=== PATIENT | female | born 1965 | race Caucasian/White ===

== ENCOUNTER 2016-04-20 08:44 | Emergency (ER) | payer BC, OTHER ==
[2016-04-20 09:00] VITALS: BP 128/68
--- NOTE | 2016-04-20 09:46 | UC ---
UC General HPI - HPI Summary HPI Summary: The patient comes in today for: 1. Sinus congestion, "minor aches," "headaches," "ankle pain in the morning," "right groin pain, but now gone,": Onset: 6 days ago (sinus congestion). Palliative/provocative: Sudafed and Tylenol--these seemed to help. Quality: Ache. Region: No ankle pain at this time or groin pain. Severity: 0/10 for the ankle or groin. Time: Comes and goes. Associated symptoms: Fever: None. Rhinitis: Clear Cough: None. * - History of Current Complaint Chief Complaint: UCRespiratory Stated Complaint: SINUS,ACHY,EAR PAIN Time Seen by Provider: 04/20/16 09:01 Hx Obtained From: Patient - Allergy/Home Medications Allergies/Adverse Reactions: Allergies Allergy/AdvReac Type Severity Reaction Status Date / Time ambesol AdvReac Mild See Comment Uncoded 04/20/16 08:50 Home Medications: Home Medications Ibuprofen TAB* [Motrin TAB*] 600 mg PO QID PRN 04/20/16 [History Confirmed 04/20] Pseudoephedrine TAB* [Sudafed TAB*] 30 mg PO Q4H PRN 04/20/16 [History Confirmed 04/20/16] PMH/Surg Hx/FS Hx/Imm Hx Previously Healthy: Yes Endocrine History Of: Denies: Diabetes, Thyroid Disease, Hyperthyroidism, Hypothyroidism, Dyslipidemia Cardiovascular History Of: Denies: Cardiac Disorders, Hypertension, Pacemaker/ICD, Myocardial Infarction , Congestive Heart Failure, Atrial Fibrillation, Deep Vein Thrombosis, Bleeding Disorders Respiratory History Of: Denies: COPD, Asthma, Bronchitis, Pneumonia, Pulmonary Embolism GI/ History Of: Denies: Gastroesophageal Reflux, Ulcer, Gastrointestinal Bleed, Gall Bladder Disease, Kidney Stones, Diverticulitis, Renal Disease, Urosepsis Neurological History Of: Denies: TIA, CVA, Dementia, Seizures, Migraine Psychological History Of: Denies: Anxiety, Depression, Bipolar Disorder, Schizophrenia, Post Traumatic Stress Disorder Cancer History Of: Denies: Lung Cancer, Colorectal Cancer, Breast Cancer, Prostate Cancer, Cervical Cancer Other History Of: Negative For: HIV, Hepatitis B, Hepatitis C, Anticoagulant Therapy - Surgical History Surgical History: Yes Surgery Procedure, Year, and Place: tonsilectomy. D&C - Family History Known Family History: Positive: Cardiac Disease, Other - DJD Negative: Hypertension, Diabetes Family History: hx DM and CAD - Social History Occupation: Employed Full-time Alcohol Use: Weekly Substance Use Type: None Smoking Status (MU): Never Smoked Tobacco Have You Smoked in the Last Year: No - Immunization History Most Recent Influenza Vaccination: not this season Review of Systems Constitutional: Negative Skin: Negative Eyes: Negative ENT: Negative Respiratory: Negative Cardiovascular: Negative Gastrointestinal: Negative Genitourinary: Negative All Other Systems Reviewed And Are Negative: Yes Physical Exam Triage Information Reviewed: Yes Appearance: Well-Appearing, No Pain Distress, Well-Nourished Vital Signs: Initial Vital Signs Temp 98.9 F 04/20/16 08:52 Pulse 72 04/20/16 08:52 Resp 18 04/20/16 08:52 BP 128/68 04/20/16 08:52 Pulse Ox 100 04/20/16 08:52 Vital Signs Reviewed: Yes Eyes: Positive: Conjunctiva Clear. Negative: Discharge ENT: Positive: Hearing grossly normal, Other: - There was tenderness to palpation of his frontal and maxillary sinuses.. Negative: Pharyngeal erythema , Nasal congestion, Nasal drainage, TM bulging, TM dull, TM red, Tonsillar swelling, Tonsillar exudate Dental: Negative: Gross Decay/Caries @, Dental Fracture @ Neck: Positive: Supple, Nontender, No Lymphadenopathy. Negative: Nuchal Rigidity Respiratory: Positive: Chest non-tender, Lungs clear, No respiratory distress, No accessory muscle use. Negative: Crackles, Wheezing Cardiovascular: Positive: RRR, No Murmur Abdomen Description: Positive: Nontender, No Organomegaly, Soft. Negative: Distended, Guarding Musculoskeletal: Positive: Strength Intact, ROM Intact, Other: - There was no tenderness to palpation of the right inguinal area, no femoral hernia. No tenderness to palpation of the ankles, no reduction of range of motion. Neurological: Positive: Alert, Muscle Tone Normal Psychological: Negative: Age Appropriate Behavior, Consolable Skin: Negative: rashes, breakdown Course/Dx - Course Course Of Treatment: The patient was told that I thought she had a viral syndrome at this time, but she wanted an antibiotic in the event she develops a prolonged course with purulent rhinitis or cough. She also wanted prescription Naproxen to take at night to help with her morning ankle pain. She had multiple other concerns such as weight gain, but she was referred back to her primary care provider for those more minor issues. - Differential Dx - Multi-Symptom Provider Diagnoses: Sinusitis. Osteoarthritis. Weight gain. Discharge - Discharge Plan Condition: Stable Disposition: HOME Patient Education Materials: Viral Syndrome (ED), Sinusitis (ED), Osteoarthritis (ED) Referrals: Grant Olivo MD [Primary Care Provider] - 1 Week (Please see your primary care provider in about a week to see how well you are doing. If you get worse, please be seen sooner.)
== END 2016-04-20 10:25 | disposition home or self-care (01) ==
LOC: UCCORT 08:44
DX: J32.9 Chronic sinusitis, unspecified (principal); M19.90 Unspecified osteoarthritis, unspecified site; R63.5 Abnormal weight gain
CPT/HCPCS: 87502; 99212; G0463

== ENCOUNTER 2016-06-17 09:15 | Emergency (ER) | payer BC ==
[2016-06-17 10:24] VITALS: BP 123/71
--- NOTE | 2016-06-17 10:39 | UC ---
Throat Pain/Nasal Jonathan HPI - HPI Summary HPI Summary: RIGHT SIDED SINUS PAIN AND PRESSURE X 7 DAYS + RIGHT EAR PAIN , NO FEVER, NO COUGH OR RUNNY NOSE - History of Current Complaint Chief Complaint: UCGeneralIllness Stated Complaint: RIGHT SIDE FACE/EAR COMPLAINT Time Seen by Provider: 06/17/16 10:13 Hx Obtained From: Patient Hx Last Menstrual Period: DEC 2015 Onset/Duration: Gradual Onset, Lasting Days - 7, Still Present Severity: Moderate Cough: None Associated Signs & Symptoms: Positive: Sinus Discomfort. Negative: Nasal Discharge, Fever, Rash - Allergies/Home Medications Allergies/Adverse Reactions: Allergies Allergy/AdvReac Type Severity Reaction Status Date / Time ambesol AdvReac Mild See Comment Uncoded 06/17/16 10:14 PMH/Surg Hx/FS Hx/Imm Hx Endocrine History Of: Denies: Diabetes, Thyroid Disease, Hyperthyroidism, Hypothyroidism, Dyslipidemia Cardiovascular History Of: Denies: Cardiac Disorders, Hypertension, Pacemaker/ICD, Myocardial Infarction , Congestive Heart Failure, Atrial Fibrillation, Deep Vein Thrombosis, Bleeding Disorders Respiratory History Of: Denies: COPD, Asthma, Bronchitis, Pneumonia, Pulmonary Embolism GI/ History Of: Denies: Gastroesophageal Reflux, Ulcer, Gastrointestinal Bleed, Gall Bladder Disease, Kidney Stones, Diverticulitis, Renal Disease, Urosepsis Neurological History Of: Denies: TIA, CVA, Dementia, Seizures, Migraine Psychological History Of: Denies: Anxiety, Depression, Bipolar Disorder, Schizophrenia, Post Traumatic Stress Disorder Cancer History Of: Denies: Lung Cancer, Colorectal Cancer, Breast Cancer, Prostate Cancer, Cervical Cancer Other History Of: Negative For: HIV, Hepatitis B, Hepatitis C, Anticoagulant Therapy - Surgical History Surgical History: Yes Surgery Procedure, Year, and Place: tonsilectomy. D&C - Family History Known Family History: Positive: Cardiac Disease, Other - DJD Negative: Hypertension, Diabetes Family History: hx DM and CAD - Social History Alcohol Use: Weekly Substance Use Type: None Smoking Status (MU): Never Smoked Tobacco Have You Smoked in the Last Year: No - Immunization History Most Recent Influenza Vaccination: not this season Review of Systems Constitutional: Negative Skin: Negative Eyes: Negative ENT: Negative Respiratory: Negative Cardiovascular: Negative Gastrointestinal: Negative All Other Systems Reviewed And Are Negative: Yes Physical Exam Triage Information Reviewed: Yes Appearance: Well-Appearing, No Pain Distress, Well-Nourished Vital Signs: Initial Vital Signs Temp 97.7 F 06/17/16 10:15 Pulse 68 06/17/16 10:15 Resp 16 06/17/16 10:15 BP 123/71 06/17/16 10:15 Pulse Ox 100 06/17/16 10:15 Vital Signs Reviewed: Yes Eyes: Positive: Conjunctiva Clear ENT: Positive: Pharynx normal, Pharyngeal erythema, Nasal congestion, Nasal drainage, TMs normal, Other: - TENDERNESS RIGH MAXILLARY SINUS, Neck: Positive: Supple, Nontender, No Lymphadenopathy Respiratory Exam: Normal Respiratory: Positive: Chest non-tender, Lungs clear, Normal breath sounds Cardiovascular: Positive: RRR, No Murmur, Pulses Normal Abdominal Exam: Normal Skin Exam: Normal Throat Pain/Nasal Course/Dx - Differential Dx/Diagnosis Provider Diagnoses: SINUSITIS Discharge - Discharge Plan Condition: Stable Disposition: HOME Prescriptions: Amoxicillin/Clavulanate TAB* [Augmentin TAB 875*] 875 mg PO BID #20 tab Patient Education Materials: Sinusitis (ED) Referrals: Grant Olivo MD [Primary Care Provider] - If Needed
== END 2016-06-17 10:51 | disposition home or self-care (01) ==
LOC: UCCORT 09:15
DX: J32.9 Chronic sinusitis, unspecified (principal)
CPT/HCPCS: 99212; G0463

== ENCOUNTER 2016-06-29 09:38 | Emergency (ER) | payer BC ==
[2016-06-29 09:59] VITALS: BP 132/62
--- NOTE | 2016-06-29 10:55 | UC ---
Throat Pain/Nasal Jonathan HPI - HPI Summary HPI Summary: continued right side facial pain, some right jaw and cheek pain dx with Sinusitis and is just finishing a 10 rx of augmenting - History of Current Complaint Hx Obtained From: Patient Hx Last Menstrual Period: DEC 2015 ?: No Onset/Duration: Gradual Onset, Lasting Days, Lasting Weeks - 2+ weeks, Still Present Severity: Moderate Cough: None Associated Signs & Symptoms: Positive: Sinus Discomfort - R>L <Marlee Marvin - Last Filed: 06/29/16 15:23> <Razia Neri - Last Filed: 06/30/16 19:33> - History of Current Complaint Chief Complaint: UCGeneralIllness Stated Complaint: SINUS,EAR AND NECK PAIN/ORAL COMPLAINT Time Seen by Provider: 06/29/16 10:18 - Allergies/Home Medications Allergies/Adverse Reactions: Allergies Allergy/AdvReac Type Severity Reaction Status Date / Time ambesol AdvReac Mild See Comment Uncoded 06/29/16 09:50 PMH/Surg Hx/FS Hx/Imm Hx Previously Healthy: Yes Endocrine History Of: Denies: Diabetes, Thyroid Disease, Hyperthyroidism, Hypothyroidism, Dyslipidemia Cardiovascular History Of: Denies: Cardiac Disorders, Hypertension, Pacemaker/ICD, Myocardial Infarction , Congestive Heart Failure, Atrial Fibrillation, Deep Vein Thrombosis, Bleeding Disorders Respiratory History Of: Denies: COPD, Asthma, Bronchitis, Pneumonia, Pulmonary Embolism GI/ History Of: Denies: Gastroesophageal Reflux, Ulcer, Gastrointestinal Bleed, Gall Bladder Disease, Kidney Stones, Diverticulitis, Renal Disease, Urosepsis Neurological History Of: Denies: TIA, CVA, Dementia, Seizures, Migraine Psychological History Of: Denies: Anxiety, Depression, Bipolar Disorder, Schizophrenia, Post Traumatic Stress Disorder Cancer History Of: Denies: Lung Cancer, Colorectal Cancer, Breast Cancer, Prostate Cancer, Cervical Cancer Other History Of: Negative For: HIV, Hepatitis B, Hepatitis C, Anticoagulant Therapy - Surgical History Surgical History: Yes Surgery Procedure, Year, and Place: tonsilectomy. D&C - Family History Known Family History: Positive: Cardiac Disease, Other - DJD Negative: Hypertension, Diabetes Family History: hx DM and CAD - Social History Occupation: Employed Full-time Lives: With Family Alcohol Use: Weekly Substance Use Type: None Smoking Status (MU): Never Smoked Tobacco Have You Smoked in the Last Year: No - Immunization History Most Recent Influenza Vaccination: NONE Most Recent Pneumonia Vaccination: N/A <Marlee Marvin - Last Filed: 06/29/16 15:23> Review of Systems Constitutional: Negative Skin: Negative Eyes: Negative ENT: Sore Throat - R, Ear Ache - R Respiratory: Negative Cardiovascular: Negative Gastrointestinal: Negative Genitourinary: Negative Motor: Negative Neurovascular: Negative Musculoskeletal: Negative Neurological: Negative Psychological: Negative All Other Systems Reviewed And Are Negative: Yes <Marlee Marvin - Last Filed: 06/29/16 15:23> Physical Exam Triage Information Reviewed: Yes Appearance: Well-Appearing, No Pain Distress, Well-Nourished Vital Signs: Initial Vital Signs Temp 98.8 F 06/29/16 09:51 Pulse 68 06/29/16 09:51 Resp 18 06/29/16 09:51 BP 132/62 06/29/16 09:51 Pulse Ox 100 06/29/16 09:51 Vital Signs Reviewed: Yes Eye Exam: Normal Eyes: Positive: Conjunctiva Clear ENT Exam: Normal ENT: Positive: Normal ENT inspection, Hearing grossly normal, Pharynx normal, TMs normal, Other: - right buccal some erythama and irratation. Negative: Nasal congestion, Nasal drainage, Tonsillar swelling, Tonsillar exudate, Trismus , Muffled/hoarse voice Dental Exam: Normal Neck exam: Normal Neck: Positive: Supple, Nontender, No Lymphadenopathy Respiratory Exam: Normal Respiratory: Positive: Chest non-tender, Lungs clear, Normal breath sounds, No respiratory distress, No accessory muscle use Cardiovascular Exam: Normal Cardiovascular: Positive: RRR, No Murmur, Pulses Normal, Brisk Capillary Refill Musculoskeletal Exam: Normal Musculoskeletal: Positive: Strength Intact, ROM Intact, No Edema Neurological Exam: Normal Neurological: Positive: Alert, Muscle Tone Normal Psychological Exam: Normal Skin Exam: Normal <Marlee Marvin - Last Filed: 06/29/16 15:23> Vital Signs: Initial Vital Signs Temp 98.8 F 06/29/16 09:51 Pulse 68 06/29/16 09:51 Resp 18 06/29/16 09:51 BP 132/62 06/29/16 09:51 Pulse Ox 100 06/29/16 09:51 <Razia Neri - Last Filed: 06/30/16 19:33> Throat Pain/Nasal Course/Dx - Course Assessment/Plan: flonase, sudafed, ibuprofen, chlorhexadene rinse, follow with pcp this week - Differential Dx/Diagnosis Differential Diagnosis/HQI/PQRI: Peritonsillar Abscess, Pharyngitis, Sinusitis, URI Provider Diagnoses: sinusitis <Marlee Marvin - Last Filed: 06/29/16 15:23> Discharge <Marlee Marvin - Last Filed: 06/29/16 15:23> <Razia Neri - Last Filed: 06/30/16 19:33> - Discharge Plan Condition: Stable Disposition: HOME Prescriptions: Chlorhexidine MW 0.12% 473ML* [Peridex Mouth Wash 0.12%] 473 ml MT BID #15 ml Patient Education Materials: Fluticasone (Into the nose), Sinusitis (ED), How to Use Nasal [place] (ED) Referrals: Grant Olivo MD [Primary Care Provider] - 1 Week Attestation Statement User Type: Provider - I was available for consult. This patient was seen by the advanced practice provider. The patient was not presented to, seen by, or examined by me.-Paco <Razia Neri - Last Filed: 06/30/16 19:33>
== END 2016-06-29 11:09 | disposition home or self-care (01) ==
LOC: UCCORT 09:38
DX: J32.9 Chronic sinusitis, unspecified (principal)
CPT/HCPCS: 99212; G0463

== ENCOUNTER 2016-09-08 14:58 | Emergency (ER) | payer BC ==
[2016-09-08 15:48] VITALS: BP 122/63
--- NOTE | 2016-09-08 16:16 | UC ---
Throat Pain/Nasal Jonathan HPI - HPI Summary HPI Summary: This is an otherwise healthy 51 yo female who presents with a one week h/o ST, congestion, fever and more recently a cough. She reports that she has been using Sudafed, Tylenol, hot liquids and regular sinus washes without improvement. Most of her pain is above her R eye. She started with a dry cough ~2 days ago. No assoc SOB. She had fever to 101 last last week. Reports generalized malaise. - History of Current Complaint Chief Complaint: UCRespiratory Stated Complaint: FEVER,COUGH,CONGESTION Hx Last Menstrual Period: DEC 2015 - Allergies/Home Medications Allergies/Adverse Reactions: Allergies Allergy/AdvReac Type Severity Reaction Status Date / Time ambesol AdvReac Mild See Comment Uncoded 09/08/16 15:48 Home Medications: Home Medications Cholecalciferol [Vitamin D] 1,000 unit PO DAILY 09/08/16 [History Confirmed ] PMH/Surg Hx/FS Hx/Imm Hx Previously Healthy: Yes Other History Of: Negative For: HIV, Hepatitis B, Hepatitis C, Anticoagulant Therapy - Surgical History Surgical History: Yes Surgery Procedure, Year, and Place: tonsilectomy. D&C - Family History Known Family History: Positive: Cardiac Disease, Other - DJD Negative: Hypertension, Diabetes Family History: hx DM and CAD - Social History Alcohol Use: Weekly Alcohol Amount: 2xweek Substance Use Type: None Smoking Status (MU): Never Smoked Tobacco Have You Smoked in the Last Year: No - Immunization History Most Recent Influenza Vaccination: NONE Most Recent Tetanus Shot: UTD Most Recent Pneumonia Vaccination: N/A Review of Systems Constitutional: Fever, Fatigue Skin: Negative Eyes: Negative ENT: Sore Throat, Sinus Congestion, Sinus Pain/Tenderness Respiratory: Cough Cardiovascular: Negative Gastrointestinal: Negative Genitourinary: Negative Motor: Negative Neurovascular: Negative Musculoskeletal: Negative Neurological: Negative All Other Systems Reviewed And Are Negative: Yes Physical Exam Triage Information Reviewed: Yes Appearance: Ill-Appearing - mildly Vital Signs: Initial Vital Signs Temp 98.3 F 09/08/16 15:43 Pulse 72 09/08/16 15:43 Resp 16 09/08/16 15:43 BP 122/63 09/08/16 15:43 Pulse Ox 99 09/08/16 15:43 Vital Signs Reviewed: Yes ENT: Positive: Nasal congestion - turbinates are inflamed, TMs normal. Negative : Pharynx normal, Pharyngeal erythema Dental: Positive: Other: - TTP over the R frontal area Neck: Positive: Supple, Enlarged Nodes @ - R anterior cervical distribution Respiratory: Positive: Normal breath sounds, No respiratory distress. Negative : Crackles, Rhonchi, Stridor, Wheezing Cardiovascular: Positive: RRR, No Murmur Abdomen Description: Positive: Nontender Skin: Negative: rashes Throat Pain/Nasal Course/Dx - Course Course Of Treatment: This is an otherwise healthy 51 yo female who presents with a 1 week h/o of worsening sinus complaints despite decongestant use and sinus washes. She has focal TTP over the R frontal region. Treat for acute sinusitis - Differential Dx/Diagnosis Differential Diagnosis/HQI/PQRI: Laryngitis, Peritonsillar Abscess, Pharyngitis , Sinusitis Provider Diagnoses: 1. Acute sinusitis Discharge - Discharge Plan Condition: Stable Disposition: HOME Prescriptions: Amoxicillin/Clavulanate TAB* [Augmentin TAB 875*] 875 mg PO BID #20 tab Patient Education Materials: Sinusitis (ED) Referrals: Grant Olivo MD [Primary Care Provider] - If Needed Additional Instructions: Activity: As tolerated Instructions: 1. Please take antibiotic as directed 2. Continue all of your additional home care that you started, ie. decongestant use, sinus wash, hot liquids, as needed tylenol
== END 2016-09-08 16:16 | disposition home or self-care (01) ==
LOC: UCCORT 14:58
DX: J01.90 Acute sinusitis, unspecified (principal)
CPT/HCPCS: 99212; G0463

== ENCOUNTER 2017-01-26 09:13 | Emergency (ER) | payer BC ==
[2017-01-26 10:11] VITALS: BP 133/58
--- NOTE | 2017-01-26 11:05 | UC ---
Throat Pain/Nasal Jonathan HPI - HPI Summary HPI Summary: pt c/o 2-3 weeks of rt sided sinus congestion/young/pain/, eye pain 11/23 with vision changes, facial swelling, ear ache, neck pain, jaw pain, swollen glands. all pain on the rt. denies f/c, n/v, sob, cp, dizziness. supine position, head level change aggravates. no alleviating factors. - History of Current Complaint Chief Complaint: UCGeneralIllness Stated Complaint: FEVER,NECK PAIN AND EAR ACHE Time Seen by Provider: 01/26/17 10:24 Hx Obtained From: Patient Hx Last Menstrual Period: DEC 2015 ?: No Onset/Duration: Gradual Onset, Lasting Weeks, Still Present, Worse Since - last 3 days Severity: Moderate Pain Intensity: 9 Cough: None Associated Signs & Symptoms: Positive: Sinus Discomfort, Nasal Discharge. Negative: Drooling, Fever, Vomiting, Rash - Allergies/Home Medications Allergies/Adverse Reactions: Allergies Allergy/AdvReac Type Severity Reaction Status Date / Time ambesol AdvReac Mild See Comment Uncoded 01/26/17 10:11 Home Medications: Home Medications Multivitamins/Minerals TAB* [Thera M Plus TAB*] 1 tab PO DAILY 01/26/17 [ History Confirmed 01/26/17] PMH/Surg Hx/FS Hx/Imm Hx Previously Healthy: Yes Other History Of: Negative For: HIV, Hepatitis B, Hepatitis C, Anticoagulant Therapy - Surgical History Surgical History: Yes Surgery Procedure, Year, and Place: tonsilectomy. D&C - Family History Known Family History: Positive: Cardiac Disease, Other - DJD Negative: Hypertension, Diabetes Family History: hx DM and CAD - Social History Occupation: Employed Full-time Alcohol Use: Weekly Alcohol Amount: 2xweek Substance Use Type: None Smoking Status (MU): Never Smoked Tobacco Have You Smoked in the Last Year: No - Immunization History Most Recent Influenza Vaccination: NONE Most Recent Tetanus Shot: UTD Most Recent Pneumonia Vaccination: N/A Review of Systems Constitutional: Chills Eyes: Other - pain, vison changes ENT: Ear Ache, Nasal Discharge, Sinus Congestion, Sinus Pain/Tenderness Respiratory: Negative Cardiovascular: Negative Gastrointestinal: Negative Neurological: Headache - sinus rt Psychological: Negative All Other Systems Reviewed And Are Negative: Yes Physical Exam Triage Information Reviewed: Yes Appearance: Well-Appearing, No Pain Distress, Well-Nourished Vital Signs: Initial Vital Signs Temp 97.5 F 01/26/17 10:01 Pulse 82 01/26/17 10:01 Resp 16 01/26/17 10:01 BP 133/58 01/26/17 10:01 Pulse Ox 100 01/26/17 10:01 Vital Signs Reviewed: Yes Eyes: Positive: Conjunctiva Clear. Negative: Discharge ENT: Positive: Hearing grossly normal, Pharynx normal, Nasal congestion, Nasal drainage, TMs normal, Sinus tenderness, Other - facial swelling on rt. Negative : Tonsillar swelling, Tonsillar exudate, Trismus, Muffled voice, Hoarse voice Neck: Positive: Supple, Tenderness @ - rt sided, Enlarged Nodes @ - rt sided Respiratory: Positive: Lungs clear, Normal breath sounds, No respiratory distress, No accessory muscle use Cardiovascular: Positive: RRR, No Murmur Musculoskeletal Exam: Normal Neurological: Positive: Alert, Other: - aox4, strength, sensation and reflexes intact bl, cn 2-12 intact, no cerebellar signs Psychological: Positive: Age Appropriate Behavior Skin Exam: Normal Throat Pain/Nasal Course/Dx - Differential Dx/Diagnosis Differential Diagnosis/HQI/PQRI: Otitis Media, Sinusitis, URI Provider Diagnoses: sinusitis, EYE PAIN Discharge - Discharge Plan Condition: Stable Disposition: HOME Patient Education Materials: Sinusitis (ED), Eye Pain (ED) Referrals: Grant Olivo MD [Primary Care Provider] - Edy Mott MD [Medical Doctor] - (YOU HAVE AN APPOINTMENT TO BE SEEN TODAY AT 1:30PM.) Additional Instructions: TRY USING THE NETTI POT IN THE MORNINGS DISCUSSED. YOU MUST ALWAYS USE CLEAN WATER. REMEMBER, POSTURE IS AN IMPORTANT FACTOR IN SINUS DRAINAGE. MOVE YOUR NECK, BREATHE. AUGMENTIN: Augmentin is a mixture of amoxicillin and clavulanate. Amoxicillin is a member of the penicillin family. It covers the germs likely to cause ear, bronchial, and urinary infections better than plain penicillin. The addition of clavulanate allows it to cover staph infections of the skin, as well as resistant cases of ear and sinus infections. Your physician has chosen Augmentin for you because of the special nature of your situation. Augmentin is best taken with meals. Nausea after taking the medication is rare, but can occur. Diarrhea can occur, particularly in small children. Vaginal yeast infections, and oral thrush in infants are also common. Contact your physician if these problems occur. Allergy to penicillins is common. If you have had an allergic reaction to any drug of the penicillin family, you should never take any other penicillin. Notify your doctor at once if you develop hives, shortness of breath, swelling, or faintness. ANYTIME YOU TAKE AN ANTIBIOTIC, IT IS IMPORTANT TO REPLENISH THE BODY'S SUPPLY OF "GOOD BACTERIA." YOU CAN GET GOOD BACTERIA FROM HIGH QUALITY CULTURED FOODS SUCH LOCAL YOGURT, SOUR KRAUT, DARY MARIBEL, NATURALLY FERMENTED PICKLES AND PROBIOTIC DRINKS. YOU CAN ALSO GET GOOD BACTERIA FROM A PROBIOTIC SUPPLEMENT.
== END 2017-01-26 11:19 | disposition home or self-care (01) ==
LOC: UCCORT 09:13
DX: J32.9 Chronic sinusitis, unspecified (principal); H57.10 Ocular pain, unspecified eye
CPT/HCPCS: 99212; G0463

== ENCOUNTER 2017-03-25 07:07 | Emergency (ER) | payer BC ==
[2017-03-25 07:48] VITALS: BP 127/68
--- NOTE | 2017-03-25 08:30 | UC ---
Skin Complaint HPI - HPI Summary HPI Summary: She has been dealing with plantar fasciatis and has done PT but that improved and this is different. It is burning. She has had athlete's foot and skin disease of the foot and is now on steroid cream. It is not working. NO fever. No DM. She gets a yearly physical. - History of Current Complaint Chief Complaint: UCRespiratory Time Seen by Provider: 03/25/17 07:32 Stated Complaint: RIGHT FOOT PAIN Hx Obtained From: Patient Hx Last Menstrual Period: November 2016 ?: No Onset/Duration: Gradual Onset, Lasting Days Timing: Constant Onset Severity: Moderate Current Severity: Severe Location: Discrete, Foot (Left) Character: Pain, Raised Aggravating Factor(s): Touch Alleviating Factor(s): Nothing Associated Signs & Symptoms: Positive: Rash, Tenderness. Negative: Nausea, Vomiting, Numbness, Thirst, Diaphoresis, Weakness, Pallor, Shivering, Fever, Chills, Drainage, Bruising, Red Streaks - Allergy/Home Medications Allergies/Adverse Reactions: Allergies Allergy/AdvReac Type Severity Reaction Status Date / Time ambesol AdvReac Mild See Comment Uncoded 03/25/17 07:43 Home Medications: Home Medications Ibuprofen TAB* [Advil TAB*] 400 - 800 mg PO Q6H PRN 03/25/17 [History Confirmed 03/25/17] Review of Systems Skin: Rash All Other Systems Reviewed And Are Negative: Yes PMH/Surg Hx/FS Hx/Imm Hx Previously Healthy: No - planar fasciatis. Other History Of: Negative For: HIV, Hepatitis B, Hepatitis C, Anticoagulant Therapy - Surgical History Surgical History: Yes Surgery Procedure, Year, and Place: tonsilectomy. D&C - Family History Known Family History: Positive: Cardiac Disease, Other - DJD Negative: Hypertension, Diabetes Family History: hx DM and CAD - Social History Occupation: Employed Full-time Alcohol Use: 1-2 glasses of wine weekly Alcohol Amount: 2xweek Substance Use Type: None Smoking Status (MU): Never Smoked Tobacco Have You Smoked in the Last Year: No - Immunization History Most Recent Influenza Vaccination: NONE Most Recent Tetanus Shot: UTD Most Recent Pneumonia Vaccination: N/A Physical Exam Triage Information Reviewed: Yes Appearance: Well-Appearing, No Pain Distress, Well-Nourished Vital Signs: Initial Vital Signs Temp 98.1 F 03/25/17 07:39 Pulse 68 03/25/17 07:39 Resp 16 03/25/17 07:39 BP 127/68 03/25/17 07:39 Pulse Ox 100 03/25/17 07:39 Vital Signs Reviewed: Yes Eyes: Positive: Conjunctiva Clear ENT: Positive: Hearing grossly normal, Pharynx normal. Negative: Nasal congestion, Nasal drainage Neck: Negative: Nuchal Rigidity Respiratory: Positive: No accessory muscle use. Negative: Respiratory distress , Accessory muscle use Cardiovascular: Positive: Brisk Capillary Refill Abdomen Description: Negative: Distended Musculoskeletal Exam: Other - NO ankle or foot swelling. Neg heel squeeze. No pain with foot dorsiflexion. Neurological: Positive: Alert, Muscle Tone Normal. Negative: Fatigued Psychological: Positive: Age Appropriate Behavior Skin Exam: Other - thickened skin in a patch the size of ilir with dry and cracked skin. NO streaking. The area is tender. Course/Dx - Course Course Of Treatment: This is not c/w plantar fasciatis. It is on the surface of the skin. We will stop the steroid ointment and start antifungal. She will use eucerin, epsom salt soaks and f/u with Dermatology for possible Bx. - Diagnoses Provider Diagnoses: rash. athelete's foot. Discharge - Discharge Plan Condition: Good Disposition: HOME Prescriptions: Tolnaftate [Fungi-Guard] 1 % EX TID #30 cre Patient Education Materials: Antifungals (On the skin), Athlete's Foot (ED) Referrals: Grant Olivo MD [Primary Care Provider] - Noreen Post [Medical Doctor] - Additional Instructions: Try epsom salt soaks and eucerin cream.
== END 2017-03-25 08:29 | disposition home or self-care (01) ==
LOC: UCCORT 07:07
DX: R21 Rash and other nonspecific skin eruption (principal); B35.3 Tinea pedis
CPT/HCPCS: 99212; G0463

== ENCOUNTER 2017-07-19 08:26 | Emergency (ER) | payer BC ==
[2017-07-19 08:45] VITALS: BP 152/78
[2017-07-19] MEDS ORDERED: Albuterol/Ipratropium NEB.SOL* Albuterol 2.5 MG/Ipratropium 0.5 MG 3 ML INH ONE (09:11)
--- NOTE | 2017-07-19 09:11 | UC ---
Respiratory Complaint HPI - HPI Summary HPI Summary: Patient to urgent care today with a complaint of 3 days of body aches cough nasal and chest congestion fevers as high as 102. Patient did not get a flu vaccine this year. Patient reports one family member that's been sick with similar illness and several members of her class F sick with similar illness unsure if they had influenza. Denies nausea vomiting diarrhea - History of Current Complaint Chief Complaint: UCRespiratory Stated Complaint: FEVER/ROSI/EAR/ACHEY Time Seen by Provider: 07/19/17 09:03 Hx Obtained From: Patient Hx Last Menstrual Period: 11/2016 ?: No Onset/Duration: Sudden Onset, Lasting Days - 3, Still Present Timing: Constant Severity Initially: Moderate Severity Currently: Moderate Pain Intensity: 7 Pain Scale Used: 0-10 Numeric Character: Cough: Nonproductive Aggravating Factors: Nothing Alleviating Factors: Nothing Associated Signs And Symptoms: Positive: Fever, Chills, Pleuritic Chest Pain, URI, Nasal Congestion - Allergies/Home Medications Allergies/Adverse Reactions: Allergies Allergy/AdvReac Type Severity Reaction Status Date / Time ambesol AdvReac Mild See Comment Uncoded 07/19/17 08:46 Home Medications: Home Medications Cholecalciferol TAB* [Vitamin D TAB*] 1,000 unit PO DAILY 07/19/17 [History Confirmed 07/19/17] PMH/Surg Hx/FS Hx/Imm Hx Previously Healthy: Yes Other History Of: Negative For: HIV, Hepatitis B, Hepatitis C, Anticoagulant Therapy - Surgical History Surgical History: Yes Surgery Procedure, Year, and Place: tonsilectomy. D&C - Family History Known Family History: Positive: Cardiac Disease, Other - DJD Negative: Hypertension, Diabetes Family History: hx DM and CAD - Social History Occupation: Employed Full-time Lives: With Family Alcohol Use: Weekly Alcohol Amount: 1 wine 2xweek Substance Use Type: None Smoking Status (MU): Never Smoked Tobacco Have You Smoked in the Last Year: No - Immunization History Most Recent Influenza Vaccination: NONE Most Recent Tetanus Shot: UTD Most Recent Pneumonia Vaccination: N/A Review of Systems Constitutional: Fever, Chills, Fatigue Eyes: Negative ENT: Sore Throat, Ear Ache, Nasal Discharge, Sinus Congestion Respiratory: Cough Cardiovascular: Negative Gastrointestinal: Negative Genitourinary: Negative Motor: Negative Neurovascular: Negative Musculoskeletal: Arthralgia Neurological: Negative Psychological: Negative Is Patient Immunocompromised?: No All Other Systems Reviewed And Are Negative: Yes Physical Exam Triage Information Reviewed: Yes Appearance: Well-Nourished, Ill-Appearing, Pain Distress Vital Signs: Initial Vital Signs Temp 99.1 F 07/19/17 08:34 Pulse 97 07/19/17 08:34 Resp 22 07/19/17 08:34 BP 152/78 07/19/17 08:34 Pulse Ox 100 07/19/17 08:34 Vital Signs Reviewed: Yes Eye Exam: Normal Eyes: Positive: Conjunctiva Clear ENT Exam: Normal ENT: Positive: Normal ENT inspection, Hearing grossly normal, Pharynx normal, TMs normal, Uvula midline. Negative: Nasal congestion, Tonsillar swelling, Tonsillar exudate, Trismus, Muffled voice, Hoarse voice Dental Exam: Normal Neck exam: Normal Neck: Positive: Supple, Nontender, No Lymphadenopathy Respiratory Exam: Normal Respiratory: Positive: Chest non-tender, Lungs clear, Normal breath sounds, No respiratory distress, No accessory muscle use Cardiovascular Exam: Normal Cardiovascular: Positive: RRR, No Murmur, Pulses Normal, Brisk Capillary Refill Musculoskeletal Exam: Normal Musculoskeletal: Positive: Strength Intact, ROM Intact, No Edema Neurological Exam: Normal Neurological: Positive: Alert, Muscle Tone Normal Psychological Exam: Normal Skin Exam: Normal UC Diagnostic Evaluation - Laboratory O2 Sat by Pulse Oximetry: 100 Diagnostic Studies Comment: influenza A/B (-) Re-Evaluation - Re-Evaluation First Eval Change: Improved Respiratory Course/Dx - Course Course Of Treatment: Tylenol ibuprofen for pain, Flonase nasal spray, albuterol inhaler, try to avoid Sudafed due to elevated blood pressure, Augmentin, follow blood pressure with PCP - Differential Dx/Diagnosis Provider Diagnoses: Acute rhinnosinuis, bronchospastic cough Discharge - Sign-Out/Discharge Documenting (check all that apply): Discharge/Admit/Transfer - Discharge Plan Condition: Stable Disposition: HOME Prescriptions: Albuterol HFA INHALER* [Ventolin HFA Inhaler*] 2 puff INH Q4H PRN #1 mdi PRN Reason: cough chest tightness Amoxicillin/Clavulanate TAB* [Augmentin TAB 875*] 875 mg PO BID #20 tab Fluticasone NASAL SPRAY 50MCG* [Flonase NASAL SPRAY 50MCG*] 2 spray BOTH NARES DAILY #1 btl Patient Education Materials: Sinusitis (ED), How to Use a Metered-Dose Inhaler (ED), Hypertension (ED), How to Use Nasal Lyons (ED) Referrals: Grant Olivo MD [Primary Care Provider] - 2 Weeks - Billing Disposition and Condition Condition: STABLE Disposition: HOME
== END 2017-07-19 10:12 | disposition home or self-care (01) ==
LOC: UCCORT 08:26
DX: J01.90 Acute sinusitis, unspecified (principal); R05 Cough; Z88.6 Allergy status to analgesic agent
CPT/HCPCS: 87502; 99212; A9270-GY; G0463

== ENCOUNTER 2017-08-24 11:18 | Emergency (ER) | payer BC ==
[2017-08-24 11:52] VITALS: BP 145/83
--- NOTE | 2017-08-24 12:05 | UC ---
Back Pain HPI - HPI Summary HPI Summary: 52 yo female presents with left rib pain radiating to her left mid back for the last 3 days. She tells me that 4 days ago she did some heavy lifting and wonders if she strained a muscle. Pain does not seem to be improving and she additionally reports nausea, early satiety, and a general feeling of "shakiness " that all started 2-3 days ago with this pain. Pain is not worse with movement , but is worse with palpation and when she lays on that side. Denies fever, chills, cough, SOB, chest pain, vomiting, diarrhea, constipation, dysuria, hx of kidney stone. - History of Current Complaint Chief Complaint: UCAbdominalPain Stated Complaint: LFT SIDE ABD/UP BACK PAIN Hx Obtained From: Patient Hx Last Menstrual Period: 11/2016 Onset/Duration: Sudden Onset Timing: Constant Severity Initially: Moderate Severity Currently: Moderate Pain Intensity: 7 Pain Scale Used: 0-10 Numeric - Allergies/Home Medications Allergies/Adverse Reactions: Allergies Allergy/AdvReac Type Severity Reaction Status Date / Time ambesol AdvReac Mild See Comment Uncoded 07/19/17 08:46 PMH/Surg Hx/FS Hx/Imm Hx Previously Healthy: Yes Respiratory History: Asthma Other History Of: Negative For: HIV, Hepatitis B, Hepatitis C, Anticoagulant Therapy - Surgical History Surgical History: Yes Surgery Procedure, Year, and Place: tonsilectomy. D&C - Family History Known Family History: Positive: Cardiac Disease, Other - DJD Negative: Hypertension, Diabetes Family History: hx DM and CAD - Social History Occupation: Employed Full-time Lives: With Family Alcohol Use: None Alcohol Amount: 1 wine 2xweek Substance Use Type: None Smoking Status (MU): Never Smoked Tobacco Have You Smoked in the Last Year: No - Immunization History Most Recent Influenza Vaccination: NONE Most Recent Tetanus Shot: UTD Most Recent Pneumonia Vaccination: N/A Review of Systems Constitutional: Negative Skin: Negative Eyes: Negative ENT: Negative Respiratory: Negative Cardiovascular: Negative Gastrointestinal: Abdominal Pain, Nausea Genitourinary: Negative Neurovascular: Negative Neurological: Negative Psychological: Negative All Other Systems Reviewed And Are Negative: Yes Physical Exam - Summary Physical Exam Summary: GENERAL: NAD. WDWN. No pain distress. SKIN: No rashes, sores, lesions, or open wounds. NECK: Supple. Nontender. No lymphadenopathy. CHEST: CTAB. No r/r/w. No accessory muscle use. Breathing comfortably and in no distress. CV: RRR. Without m/r/g. Pulses intact. Brisk cap refill. ABDOMEN: LUQ moderate TTP. Left CVA tenderness. No distention or guarding. Bowel sounds present MSK: No pain with flexion/extension of spine. Strength 5/5 B/L UEs. FROM B/L UEs. No edema. NEURO: Alert. CN II-XII grossly intact. PSYCH: Age appropriate behavior. Triage Information Reviewed: Yes Vital Signs: Initial Vital Signs Temp 97.7 F 08/24/17 11:36 Pulse 54 08/24/17 11:36 Resp 18 08/24/17 11:36 BP 145/83 08/24/17 11:36 Pulse Ox 100 08/24/17 11:36 Back Pain Course/Dx - Course Course Of Treatment: UA with 1+ blood. EKG Sinus carlo at [address] changes as read by Dr. Mustafa. FSBG 83. I believe the patient is in need of, at least , a CT scan with contrast. I am unable to perform this here and therefore have recommended she go to the ER for further evaluation. She was agreeable to this plan. - Differential Dx/Diagnosis Provider Diagnoses: LUQ pain radiation to left mid back Discharge - Sign-Out/Discharge Documenting (check all that apply): Discharge/Admit/Transfer - Discharge Plan Condition: Stable Disposition: HOME Referrals: Grant Olivo MD [Primary Care Provider] - Additional Instructions: Please go to the [facility] for further workup of your abdominal pain - this may include labwork and a CT scan - Billing Disposition and Condition Condition: STABLE Disposition: Home
== END 2017-08-24 12:52 | disposition home or self-care (01) ==
LOC: UCCORT 11:18
DX: R10.32 Left lower quadrant pain (principal); R07.81 Pleurodynia; M54.89 Other dorsalgia; Z88.8 Allergy status to other drugs, medicaments and biological substances
CPT/HCPCS: 81003; 93005; 99212; G0463

== ENCOUNTER 2017-12-07 11:57 | Emergency (ER) | payer BC ==
[2017-12-07 13:22] VITALS: BP 139/73
--- NOTE | 2017-12-07 13:31 | UC ---
General HPI - HPI Summary HPI Summary: Patient is complaining of right ear pain for the past 5 days. In addition to the ear pain she notes some sinus pain(points to R maxilla)/R maxillary swelling and some right-sided throat irritation. She denies any associated fever. She does offer that sometimes she has a little bout of dizziness which she describes as vertigo but she has no associated headache now but did have a bad headache yesterday. She denies visual change, change in speech or numbness or weakness. She has no dizziness at this time. She has had "irritation" to the R eye. - History of Current Complaint Chief Complaint: UCEar Stated Complaint: RIGHT EAR COMPLAINT/DIZZY Time Seen by Provider: 12/07/17 13:19 Hx Obtained From: Patient Hx Last Menstrual Period: 11/2016 Onset/Duration: Gradual Onset Pain Intensity: 7 Associated Signs & Symptoms: Positive: Dizziness, Headache. Negative: Cough, Fever - Allergy/Home Medications Allergies/Adverse Reactions: Allergies Allergy/AdvReac Type Severity Reaction Status Date / Time ambesol AdvReac Mild See Comment Uncoded 12/07/17 13:18 PMH/Surg Hx/FS Hx/Imm Hx - Additional Past Medical History Additional PMH: sinusitis. swimmers ear. Other History Of: Negative For: HIV, Hepatitis B, Hepatitis C, Anticoagulant Therapy - Surgical History Surgical History: Yes Surgery Procedure, Year, and Place: tonsilectomy. D&C - Family History Known Family History: Positive: Cardiac Disease, Other - DJD Negative: Hypertension, Diabetes Family History: hx DM and CAD - Social History Occupation: Employed Full-time Alcohol Use: Weekly Alcohol Amount: 1-2 glasses of wine Substance Use Type: None Smoking Status (MU): Never Smoked Tobacco Have You Smoked in the Last Year: No - Immunization History Most Recent Influenza Vaccination: NONE Most Recent Tetanus Shot: UTD Most Recent Pneumonia Vaccination: N/A Vaccination Up to Date: Yes Review of Systems Constitutional: Negative Skin: Negative Eyes: Other - R eye feels funny ENT: Sore Throat - R side of throat is "irritated", Ear Ache - R, Sinus Pain/ Tenderness - R maxillary discomfort Respiratory: Negative Cardiovascular: Negative Gastrointestinal: Negative Genitourinary: Negative Motor: Negative Neurovascular: Negative Musculoskeletal: Negative Neurological: Headache Psychological: Negative Is Patient Immunocompromised?: No All Other Systems Reviewed And Are Negative: Yes Physical Exam Triage Information Reviewed: Yes Appearance: Well-Appearing, Other: - Slight swelling R maxillary area with slight droop R side of mouth but smile is equal with grimace. Vital Signs: Initial Vital Signs Temp 98 F 12/07/17 13:11 Pulse 67 12/07/17 13:11 Resp 14 12/07/17 13:11 BP 139/73 12/07/17 13:11 Pulse Ox 98 12/07/17 13:11 Vital Signs Reviewed: Yes Eyes: Positive: Conjunctiva Clear, Other: - PERRL, EOMI ENT: Positive: Pharynx normal, TMs normal - L, R occluded by cerumen impaction, Sinus tenderness - R maxilla., Uvula midline, Other - No mastoid tenderness or auricular adenopathy.. Negative: Nasal drainage Dental: Negative: Percussion Tenderness @, Dental Fracture @, Abscess @ Neck: Positive: Supple, Nontender, No Lymphadenopathy Respiratory: Positive: Lungs clear, Normal breath sounds Cardiovascular: Positive: RRR, No Murmur Abdomen Description: Positive: Nontender, No Organomegaly, Soft Bowel Sounds: Positive: Present Musculoskeletal: Positive: ROM Intact Neurological: Positive: Other: - Alert and oriented x3. Cranial nerves exam, droop R side of mouth otherwise intact. Normal steady gait. Negative Romberg and negative pronator drift. Performs rapid alternating moves with ease. 5 out of 5 strength and 2+ reflexes 4. Psychological: Positive: Age Appropriate Behavior Skin Exam: Normal Course/Dx - Course Course Of Treatment: Given the complexity of this case, including patient's history of headache and dizziness yesterday and today's right maxillary pain, swelling and slight droop to the right side of her mouth her case was d/w Dr Varma. Dr Varma obtained his own hx and did a PE. He agrees that the complaints and PE are not c/w a basic sinusitis and suggests ER transfer. ER transfer d/w pt. Pt request time to process and call her after which she agree to ER transfer to [facility] via EMS. Post flush R ear, canal is clear and no erythema to the TM. Report called to Dr Sanches, advised of concern for remote cva or other pathology and not c/w Vasquez's palsy, OM and sinsuitis should not cause a facial droop. - Differential Dx - Multi-Symptom Differential Diagnoses: Other - Does not fit a Temple palsy, OM and a sinsuitis should not cause a droop to R side of mouth. Plus, pt had an associated MIGUEL yesterday and dizziness thus need to r/o cva, lesions or other central causes of facial droop. Provider Diagnoses: Droop R face(mouth) Discharge - Sign-Out/Discharge Documenting (check all that apply): Patient Departure All imaging exams completed and their final reports reviewed: No Studies - Discharge Plan Condition: Stable Disposition: TRANS HIGHER LVL OF CARE FAC Referrals: Grant Olivo MD [Primary Care Provider] - - Billing Disposition and Condition Condition: STABLE Disposition: Trans Higher Lvl of Care Fac - Attestation Statements Provider Attestation: After my examination and interview, I am in agreement that symptoms are not consistent with simple sinusitis, I agree that right-sided facial droop without forehead involvement requires further workup, suspicious for possible ischemic stroke, patient sent to the emergency department via ambulance for further evaluation.
== END 2017-12-07 15:20 | disposition short-term general hospital (02) ==
LOC: UCCORT 11:57
DX: R29.810 Facial weakness (principal); Z88.4 Allergy status to anesthetic agent
CPT/HCPCS: 87651; 99214; G0463

== ENCOUNTER 2017-12-07 16:17 | Emergency (ER) | payer BC ==
[2017-12-07] MEDS ORDERED: NS 0.9% 1000 ML* 1,000 ML IV ONE (16:49)
[2017-12-07 17:12] LABS: ABS Basophils 0.1 10^3/ul (0-0.2); ABS Eosinophils 0.1 10^3/ul (0-0.6); ABS Lymphocytes 2.3 10^3/ul (1.0-4.8); ABS Monocytes 0.6 10^3/ul (0-0.8); ABS Nucleated RBC 0 10^3/ul; Eosinophil % 1.2 % (0-6); Hematocrit 44 % (35-47); Hemoglobin 14.9 g/dl (12.0-16.0); Lymphocyte % 32.4 % (25-47); Mean Corpuscular HGB Conc 34 g/dl (31-36); Mean Corpuscular Hemoglobin 29 pg (27-31); Mean Corpuscular Volume 85 fL (80-97); Mean Platelet Volume 8.5 um3 (7.4-10.4); Nucleated Red Blood Cells % 0.2; Platelet Count 269 10^3/ul (150-450); Red Blood Count 5.13 10^6/ul (4.00-5.40); Red Cell Distribution Width 13 % (10.5-15)
--- NOTE | 2017-12-07 17:20 | RAD ---
Indication: RIGHT side facial droop that began yesterday. Headache that started yesterday. Comparison: No relevant prior exams available on the [facility] PACS for comparison. Technique: Noncontrast CT vertex of skull through foramen magnum. Report: The sulci, ventricles, and basal cisterns are normal for age. Cardenas matter white matter differentiation is preserved without evidence for edema. No intra or extra axial hemorrhage, mass, or fluid collection detected. Unremarkable visualized orbital contents. Unremarkable calvarium and skull base. Unremarkable scalp. The visualized paranasal sinuses and mastoid air spaces are clear. IMPRESSION: #. Negative unenhanced head CT.
[2017-12-07 17:24] LABS: INR 0.85 (0.77-1.02)
[2017-12-07 17:35] LABS: EGFR Non-African American 87.2 (>60)
--- NOTE | 2017-12-07 17:41 | RAD ---
Indication: Neurologic change. Possible stroke. Comparison: No relevant prior exams available on the [facility] PACS for comparison. Technique: Dual energy PA chest. Report: Clear lungs and pleural spaces. Negative for pneumothorax. The heart, pulmonary vasculature, and mediastinal contours are unremarkable. Unremarkable osseous structures and soft tissue contours. IMPRESSION: #. No evidence for acute intrathoracic disease.
--- NOTE | 2017-12-07 18:21 | ED ---
Neurological HPI - HPI Summary HPI Summary: Patient is a 52 y/o F w/ c/o MIGUEL, blurred vision yesterday. She went to [facility] in [place], where they noted right sided facial drooping. Patient reports that she notices very slight right sided facial droop when she looks in the mirror as well. Patient had gone to convenient care because she had been experiencing right sided ear pain and right facial swelling and pain for the past 5 days. She also reports some dizziness as well as right arm numbness yesterday, which has since resolved. Patient has been outside recently , denies recent hiking but notes she lives [place]. PMHx of HTN and diabetes is denied. She also reports right upper back pain. On triage, pain is denied and nothing is noted to aggravate/alleviate Sx. - History of Current Complaint Chief Complaint: EDNeurologicalDeficit Stated Complaint: POSS STROKE Time Seen by Provider: 12/07/17 16:43 Hx Obtained From: Patient Hx Last Menstrual Period: 11/2016 Onset/Duration: Started hours ago - right facial droop onset this morning, Started days ago - MIGUEL, blurred vision yesterday; right ear pain and right facial swelling, Resolved - dizziness, right arm numbness Current Severity: None - pain is denied Neurological Deficit Location: Facial - right sided Pain Intensity: 0 Pain Scale Used: 0-10 Numeric - 0/10 Character: Dizzy Aggravating: Nothing Alleviating: Nothing Associated Signs and Symptoms: Positive: Visual Changes - blurred vision, Headache, Dizziness, Numbness - right arm, since resolved - Allergy/Home Medications Allergies/Adverse Reactions: Allergies Allergy/AdvReac Type Severity Reaction Status Date / Time ambesol AdvReac Mild See Comment Uncoded 12/07/17 13:18 PMH/Surg Hx/FS Hx/Imm Hx Endocrine/Hematology History: Denies: Hx Anticoagulant Therapy, Hx Diabetes, Hx Thyroid Disease Cardiovascular History: Denies: Hx Congestive Heart Failure, Hx Deep Vein Thrombosis, Hx Hypertension , Hx Myocardial Infarction, Hx Pacemaker/ICD Respiratory History: Denies: Hx Asthma, Hx Chronic Obstructive Pulmonary Disease (COPD), Hx Lung Cancer, Hx Pneumonia, Hx Pulmonary Embolism GI History: Denies: Hx Gall Bladder Disease, Hx Gastrointestinal Bleed, Hx Ulcer, Hx Urosepsis History: Denies: Hx Kidney Stones, Hx Renal Disease Neurological History: Denies: Hx Dementia, Hx Migraine, Hx Seizures, Hx Transient Ischemic Attacks (TIA) Psychiatric History: Denies: Hx Anxiety, Hx Depression, Hx Schizophrenia, Hx Bipolar Disorder - Surgical History Surgery Procedure, Year, and Place: tonsilectomy. D&C Infectious Disease History: Unable to Obtain/Confirm Infectious Disease History: Denies: Hx Clostridium Difficile, Hx Hepatitis, Hx Human Immunodeficiency Virus (HIV), Hx of Known/Suspected MRSA, Hx Shingles, Hx Tuberculosis, Hx Known/ Suspected VRE, Hx Known/Suspected VRSA, History Other Infectious Disease, Traveled Outside the [place] in Last 30 Days - Family History Known Family History: Positive: Cardiac Disease, Other - DJD Negative: Hypertension, Diabetes Family History: hx DM and CAD - Social History Alcohol Use: Weekly Alcohol Amount: 1-2 glasses of wine Substance Use Type: Reports: None Smoking Status (MU): Never Smoked Tobacco Have You Smoked in the Last Year: No Review of Systems Positive: Blurred Vision Positive: Other - right ear pain Positive: Edema - right facial swelling , Other - right facial pain Neurological: Other - dizziness, since resolved; right facial droop, slight, still present Positive: Headache, Numbness - right arm, since resolved All Other Systems Reviewed And Are Negative: Yes Physical Exam - Summary Physical Exam Summary: Appearance: Well appearing, no pain distress Skin: warm, dry, reflects adequate perfusion Head/face: normal Eyes: EOMI, ANIYAH ENT: mucous membranes moist Neck: supple, non-tender Respiratory: CTA, breath sounds present Cardiovascular: RRR, pulses symmetrical Abdomen: non-tender, soft Bowel Sounds: present Musculoskeletal: normal, strength/ROM intact Neuro: normal, sensory motor intact, A&Ox3; GCS 15, NIH 1 Triage Information Reviewed: Yes Vital Signs On Initial Exam: Initial Vitals Pulse BP Pulse Ox 63 139/93 100 12/07/17 16:51 12/07/17 16:51 12/07/17 16:51 Vital Signs Reviewed: Yes Diagnostics - Vital Signs Vital Signs Temp Pulse Resp BP Pulse Ox 12/07/17 18:11 60 16 100 12/07/17 17:24 60 18 136/78 99 12/07/17 17:00 98.1 F 67 16 139/93 96 12/07/17 16:52 64 100 12/07/17 16:51 63 139/93 100 - Laboratory Lab Results: Lab Results 12/07/17 12/07/17 12/07/17 Range/Units 16:56 16:56 16:56 WBC 7.0 (3.5-10.8) 10^3/ul RBC 5.13 (4.00-5.40) 10^6/ul Hgb 14.9 (12.0-16.0) g/dl Hct 44 (35-47) % MCV 85 (80-97) fL MCH 29 (27-31) pg MCHC 34 (31-36) g/dl RDW 13 (10.5-15) % Plt Count 269 (150-450) 10^3/ul MPV 8.5 (7.4-10.4) um3 Neut % (Auto) 56.8 (38-83) % Lymph % (Auto) 32.4 (25-47) % [place] % (Auto) 8.7 H (0-7) % Eos % (Auto) 1.2 (0-6) % Baso % (Auto) 0.9 (0-2) % Absolute Neuts (auto) 4.0 (1.5-7.7) 10^3/ul Absolute Lymphs (auto) 2.3 (1.0-4.8) 10^3/ul Absolute Monos (auto) 0.6 (0-0.8) 10^3/ul Absolute Eos (auto) 0.1 (0-0.6) 10^3/ul Absolute Basos (auto) 0.1 (0-0.2) 10^3/ul Absolute Nucleated RBC 0 10^3/ul Nucleated RBC % 0.2 INR (Anticoag Therapy) 0.85 (0.77-1.02) APTT 36.3 (26.0-36.3) seconds Sodium 139 (135-145) mmol/L Potassium 4.2 (3.5-5.0) mmol/L Chloride 104 (101-111) mmol/L Carbon Dioxide 27 (22-32) mmol/L Anion Gap 8 (2-11) mmol/L BUN 16 (6-24) mg/dL Creatinine 0.70 (0.51-0.95) mg/dL Est GFR ( Amer) 105.5 (>60) Est GFR (Non-Af Amer) 87.2 (>60) BUN/Creatinine Ratio 22.9 H (8-20) Glucose 90 (70-100) mg/dL Lactic Acid (0.5-2.0) mmol/L Calcium 9.8 (8.6-10.3) mg/dL Total Bilirubin 0.50 (0.2-1.0) mg/dL AST 19 (13-39) U/L ALT 14 (7-52) U/L Alkaline Phosphatase 49 (34-104) U/L Troponin I 0.01 (<0.04) ng/mL Total Protein 7.9 (6.4-8.9) g/dL Albumin 5.1 (3.2-5.2) g/dL Globulin 2.8 (2-4) g/dL Albumin/Globulin Ratio 1.8 (1-3) Triglycerides 288 mg/dL Cholesterol 234 mg/dL LDL Cholesterol 123 mg/dL HDL Cholesterol 53.6 mg/dL 12/07/17 Range/Units 17:20 WBC (3.5-10.8) 10^3/ul RBC (4.00-5.40) 10^6/ul Hgb (12.0-16.0) g/dl Hct (35-47) % MCV (80-97) fL MCH (27-31) pg MCHC (31-36) g/dl RDW (10.5-15) % Plt Count (150-450) 10^3/ul MPV (7.4-10.4) um3 Neut % (Auto) (38-83) % Lymph % (Auto) (25-47) % [place] % (Auto) (0-7) % Eos % (Auto) (0-6) % Baso % (Auto) (0-2) % Absolute Neuts (auto) (1.5-7.7) 10^3/ul Absolute Lymphs (auto) (1.0-4.8) 10^3/ul Absolute Monos (auto) (0-0.8) 10^3/ul Absolute Eos (auto) (0-0.6) 10^3/ul Absolute Basos (auto) (0-0.2) 10^3/ul Absolute Nucleated RBC 10^3/ul Nucleated RBC % INR (Anticoag Therapy) (0.77-1.02) APTT (26.0-36.3) seconds Sodium (135-145) mmol/L Potassium (3.5-5.0) mmol/L Chloride (101-111) mmol/L Carbon Dioxide (22-32) mmol/L Anion Gap (2-11) mmol/L BUN (6-24) mg/dL Creatinine (0.51-0.95) mg/dL Est GFR ( Amer) (>60) Est GFR (Non-Af Amer) (>60) BUN/Creatinine Ratio (8-20) Glucose (70-100) mg/dL Lactic Acid 1.0 (0.5-2.0) mmol/L Calcium (8.6-10.3) mg/dL Total Bilirubin (0.2-1.0) mg/dL AST (13-39) U/L ALT (7-52) U/L Alkaline Phosphatase (34-104) U/L Troponin I (<0.04) ng/mL Total Protein (6.4-8.9) g/dL Albumin (3.2-5.2) g/dL Globulin (2-4) g/dL Albumin/Globulin Ratio (1-3) Triglycerides mg/dL Cholesterol mg/dL LDL Cholesterol mg/dL HDL Cholesterol mg/dL Result Diagrams: 12/07/17 16:56 12/07/17 16:56 Lab Statement: Any lab studies that have been ordered have been reviewed, and results considered in the medical decision making process. - Radiology CXR Xray Interpretation: No Acute Changes Radiology Interpretation Completed By: Radiologist - no evidence for acute intrathoracic disease; this report was reviewed by ed physician - CT CT sinus CT Interpretation: No Acute Changes CT Interpretation Completed By: Radiologist - no acute abnormality; this report was reviewed by ed physician CT brain CT Interpretation: No Acute Changes CT Interpretation Completed By: Radiologist - negative unenhanced head ct; this report was reviewed by ed physician - EKG 1720 Cardiac Rate: Bradycardia - rate of 58 BPM EKG Rhythm: Sinus Bradycardia ST Segment: Normal EKG Interpretation: normal axis, normal intervals NIH Scale - NIH Scale Level of Consciousness: Alert/Keenly Responsive Ask Patient the Month and His/Her Age: Both Correct Ask Pt to Open/Close Eyes and Intensive Care Specialist/Release Non-Paretic Hand: Both Correctly Best Gaze (Only Horizontal Eye Movement): Normal Visual Field Testing: No Visual Loss Facial Paresis-Pt to Smile & Close Eyes or Grimace Symmetry: Minor Paralysis Motor Function - Right Arm: No Drift-Holds 10 Seconds Motor Function - Left Arm: No Drift-Holds 10 Seconds Motor Function - Right Leg: No Drift-Holds 10 Seconds Motor Function - Left Leg: No Drift-Holds 10 Seconds Limb Ataxia-Must be out of Proportion to Weakness Present: Absent Sensory (Use Pinprick to Test Arms/Legs/Trunk/Face): Normal Best Language (Describe Picture, Name Items): No Aphasia Dysarthria (Read Several Words): Normal Extinction and Inattention: No Abnormality Total Score: 1 Re-Evaluation - Re-Evaluation First Eval Re-Evaluation Time: 18:32 Comment: Discussed results of tests, labs, and consult with Dr. Guillen with patient. Patient will be discharged to home and follow up with Dr. Guillen. She understands plan and is agreeable with plan. Course/Dx - Course Course Of Treatment: Patient with no independent risk factors for stroke presents with a very mild facial droop on the right side as well as right-sided facial discomfort without swelling, redness. There is no dental tenderness. She has also had intermittent right neck pain right posterior scapular pain and intermittent right low back pain. Her inflammatory markers are negative as is her initial CT. I discussed the case with Dr. Guillen from neurology who wishes for her to have a CT of the sinuses. This is also negative. She has almost indistinguishable facial droop which perhaps looks like a slightly have a right upper lip. There is possibility for Vasquez's palsy, soft tissue issue, trigeminal nerve issue. Stroke seems very unlikely. Dr. Guillen will see first thing in the morning in his outpatient neurology office at 8 AM. - Differential Dx Differential Diagnoses Neuro: Positive: Vasquez's Palsy, Viral Syndrome, Other - CVA/TIA/trigeminal neuralgia, lymphadenopathy - Diagnoses Provider Diagnoses: Right facial pain, Facial droop - Physician Notifications Discussed Care Of Patient With: Fortino Guillen Time Discussed With Above Provider: 17:29 Instructed by Provider To: Other - Patient's case was discussed with Dr. Guillen at 1729; he states patient can be discharged to home. Discharge - Sign-Out/Discharge Documenting (check all that apply): Patient Departure - discharge - Discharge Plan Condition: Improved Disposition: HOME Patient Education Materials: Vasquez Palsy (ED) Referrals: Grant Olivo MD [Primary Care Provider] - Fortino Guillen MD [Medical Doctor] - Additional Instructions: All Dr. Guillen first thing in the morning to be seen tomorrow morning. Drink plenty of fluids tonight. Return with weakness, numbness, difficulty speaking, worse or other concerns. - Billing Disposition and Condition Condition: IMPROVED Disposition: Home - Attestation Statements Document Initiated by Scribe: Yes Documenting Scribe: Rudy Sterling Provider For Whom Aurelio is Documenting (Include Credential): Melchor Sanches MD Scribe Attestation: I, Rudy Sterling, scribed for Melchor Sanches MD on 12/07/17 at 1857. Scribe Documentation Reviewed: Yes Provider Attestation: The documentation as recorded by the scribeRudy accurately reflects the service I personally performed and the decisions made by me, Melchor Sanches MD
--- NOTE | 2017-12-07 18:22 | RAD ---
EXAM: CT Maxillofacial Sinuses Without Intravenous Contrast CLINICAL HISTORY: 52 years old, female; Pain; Other: Right side facial pain; Additional info: R facial pain TECHNIQUE: Computed tomography images of the maxillofacial sinuses without intravenous contrast. All CT scans at this facility use at least one of these dose optimization techniques: automated exposure control; mA and/or kV adjustment per patient size (includes targeted exams where dose is matched to clinical indication); or iterative reconstruction. Coronal and sagittal reformatted images were created and reviewed. COMPARISON: No relevant prior studies available. FINDINGS: Maxillary sinuses: Unremarkable. No air-fluid levels. Sphenoid sinuses: Unremarkable. No air-fluid levels. Frontal sinuses: Unremarkable. No air-fluid levels. Ethmoid air cells: Unremarkable. No air-fluid levels. Nasal cavity/septum: No acute findings. Bones/joints: No acute fracture. Soft tissues: Unremarkable. IMPRESSION: No acute abnormality.
[2017-12-07] MEDS ORDERED: Aspirin 81 mg CHEW TAB* 81 MG TAB.CHEW PO ONE (18:26)
[2017-12-07 19:08] VITALS: BP 115/73
[2017-12-07 20:33] LABS: Urine Appearance Cloudy; Urine Blood 1+ (Negative); Urine Color Straw; Urine Ketones Negative (Negative); Urine Protein 1+(30 mg/dL) (Negative); Urine Specific Gravity 1.005 (1.010-1.030); Urine Urobilinogen Negative (Negative)
[2017-12-07 20:39] LABS: Urine Red Blood Cell 2+(6-10/hpf) (Absent); Urine White Blood Cell 3+(>20/hpf) (Absent)
== END 2017-12-07 19:07 | disposition home or self-care (01) ==
LOC: ED 16:17
DX: R51 Headache (principal); R29.810 Facial weakness; R42 Dizziness and giddiness; H53.8 Other visual disturbances
CPT/HCPCS: 36415; 70450; 70486; 71045; 80053; 80061; 81003; 81015; 83605; 84484; 85025; 85610; 85730; 86618; 87086; 93005; 99283; A9270-GY

== ENCOUNTER 2018-08-09 09:36 | Emergency (ER) | payer BC ==
[2018-08-09 11:26] VITALS: BP 137/70
[2018-08-09] MEDS ORDERED: Lidocaine 1% MPF* 2 ML VIAL INJ ONE (11:46)
[2018-08-09] MEDS ORDERED: Ibuprofen ADULT LIQ* 600 MG/30 ML UDC PO ONE (12:14)
--- NOTE | 2018-08-09 12:15 | UC ---
UC General HPI - HPI Summary HPI Summary: tenderness and swelling by R ear canal that is very painful. no fever or hx MRSA. - History of Current Complaint Chief Complaint: UCEar Stated Complaint: EAR COMPLAINT Time Seen by Provider: 08/09/18 11:29 Hx Obtained From: Patient Hx Last Menstrual Period: 11/2016 Onset/Duration: Gradual Onset Timing: Constant Pain Intensity: 6 Associated Signs & Symptoms: Negative: Headache - Allergy/Home Medications Allergies/Adverse Reactions: Allergies Allergy/AdvReac Type Severity Reaction Status Date / Time ambesol AdvReac Mild See Comment Uncoded 08/09/18 11:16 Home Medications: Home Medications Naproxen Sodium [Aleve] 220 mg PO PRN 08/09/18 [History] Pseudoephedrine TAB* [Sudafed TAB*] 30 mg PO Q6H PRN 08/09/18 [History Confirmed 08/09/18] PMH/Surg Hx/FS Hx/Imm Hx Previously Healthy: Yes Other History Of: Negative For: HIV, Hepatitis B, Hepatitis C, Anticoagulant Therapy - Surgical History Surgical History: Yes Surgery Procedure, Year, and Place: tonsilectomy. D&C - Family History Known Family History: Positive: Cardiac Disease, Other - DJD Negative: Hypertension, Diabetes Family History: hx DM and CAD - Social History Alcohol Use: Weekly Alcohol Amount: 1-2 glasses of wine Substance Use Type: None Smoking Status (MU): Never Smoked Tobacco Have You Smoked in the Last Year: No - Immunization History Most Recent Influenza Vaccination: NONE Most Recent Tetanus Shot: UTD Most Recent Pneumonia Vaccination: N/A Vaccination Up to Date: Yes Review of Systems All Other Systems Reviewed And Are Negative: No Constitutional: Negative: Fever Skin: Negative: Rash ENT: Positive: Ear Ache - R. Negative: Sore Throat, Nasal Discharge Neurological: Negative: Headache Physical Exam Triage Information Reviewed: Yes Appearance: Well-Appearing Vital Signs: Initial Vital Signs Temp 97.2 F 08/09/18 11:17 Pulse 55 08/09/18 11:17 Resp 14 08/09/18 11:17 BP 137/70 08/09/18 11:17 Pulse Ox 100 08/09/18 11:17 Vital Signs Reviewed: Yes Eyes: Positive: Conjunctiva Clear ENT: Positive: Pharynx normal, TMs normal, Other - Floor of R outter ear canal and junction of auricle has a 3-4mm area of tenderness and fluctuance. No posterior auricular adenopathy, anterior node is tender but not swollen.. Negative: Nasal congestion, Nasal drainage Neck: Positive: Supple, Nontender, No Lymphadenopathy Musculoskeletal: Positive: ROM Intact Neurological: Positive: Alert Psychological: Positive: Age Appropriate Behavior Skin Exam: Normal Skin: Negative: Rashes Course/Dx - Course Course Of Treatment: procedure: time out done. prep betadine. local with 30G needle. Tip # 11 blade use to make a superficial stab, slight drainage. Less swelling post I&D. site covered with Bacitracin. Only scant bleeding. Pt c/o pain but tolerated well. - Differential Dx - Multi-Symptom Differential Diagnoses: Other - small abscess R ear at junction of canal/ auricle. - Diagnoses Provider Diagnosis: Abscess Discharge - Sign-Out/Discharge Documenting (check all that apply): Patient Departure All imaging exams completed and their final reports reviewed: No Studies - Discharge Plan Condition: Stable Disposition: HOME Prescriptions: Cephalexin CAP* [Keflex CAP*] 500 mg PO TID 7 Days #21 cap Patient Education Materials: Abscess Follow-up (ED) Referrals: Julian Rothman MD [Medical Doctor] - Additional Instructions: CALL THE OFFICE OF ENT AND ADVISED YOU NEED TO BE SEEN THIS WEEK IN THE [place] OFFICE - Billing Disposition and Condition Condition: STABLE Disposition: Home - Attestation Statements Provider Attestation: Per institutional requirements, I have reviewed the chart, however, I was not consulted specifically or made aware of this patient by the midlevel provider. I did not personally evaluate, interact with , or disposition this patient.
== END 2018-08-09 12:42 | disposition home or self-care (01) ==
LOC: UCCORT 09:36
DX: H60.01 Abscess of right external ear (principal); Z88.8 Allergy status to other drugs, medicaments and biological substances
CPT/HCPCS: 10060; 99212; A9270-GY; G0463